=== PATIENT | female | born 1970 | race American Indian/Alaskan Native ===

== ENCOUNTER 2016-11-09 13:24 | Emergency (ER) | payer OTHER ==
[2016-11-09 13:24] VITALS: BMI 27.7
[2016-11-09 13:42] VITALS: BP 144/78; PULSE 80; RESP 20; TEMP 98.3; O2SAT 99
--- NOTE | 2016-11-09 14:28 | ED PDOC ---
Upper Extremity Pain/Injury Time Seen by Provider: 11/09/16 13:34 Chief Complaint (Nursing): Finger,Hand,&Wrist Chief Complaint (Provider): cyst on left hand History Per: Patient History/Exam Limitations: no limitations Onset/Duration Of Symptoms: Days Current Symptoms Are (Timing): Still Present Quality: "Pain" Severity: Moderate Exacerbating Factor(s): Strenuous Use Of Affected Area Additional History Per: Patient Additional Complaint(s): The pt. is a 46yo female, right hand dominant, presents to the ED for evaluation of pain in her left wrist radiating through her left arm. Pt has a ganglion cyst on her left wrist and reports it has been present for a long time period however has recently started causing her pain. Pt. states pain worsens with movement of her wrist. She offers no additional medical complaints. Past Medical History Reviewed: Historical Data, Nursing Documentation, Vital Signs Vital Signs: Last Vital Signs Temp 98.3 F 11/09/16 13:40 Pulse 80 11/09/16 13:40 Resp 20 11/09/16 13:40 BP 144/78 11/09/16 13:40 Pulse Ox 99 11/09/16 13:40 - Medical History PMH: HTN - Surgical History Surgical History: No Surg Hx - Family History Family History: States: Unknown Family Hx - Home Medications Home Medications: Ambulatory Orders Medication Instructions Recorded Cetirizine Hydrochloride [Zyrtec] 10 mg PO DAILY #15 tab 03/05/14 Fluticasone Nasal [Flonase] 2 spr NS DAILY #1 spr 03/05/14 Hydrochlorothiazide [HCTZ] 25 mg PO DAILY #15 03/05/14 diaZEpam [Valium] 5 mg PO Q6 #10 tab 03/05/14 Naproxen 375 mg PO Q8 PRN #21 tab 06/15/14 diaZEpam [Valium] 5 mg PO Q6 PRN #8 tab 06/15/14 Cephalexin [cephalexin] 500 mg PO BID #14 cap 11/09/16 Ibuprofen [Motrin] 600 mg PO Q6 #20 tab 11/09/16 - Allergies Allergies/Adverse Reactions: Allergies Allergy/AdvReac Type Severity Reaction Status Date / Time No Known Allergies Allergy Verified 11/09/16 13:39 Review of Systems ROS Statement: Except As Marked, All Systems Reviewed And Found Negative Musculoskeletal: Positive for: Arm Pain (left arm and wrist pain) Physical Exam - Reviewed Nursing Documentation Reviewed: Yes Vital Signs Reviewed: Yes - Physical Exam Appears: Positive for: Well, Non-toxic, No Acute Distress Pulses-Radial (L): 2+ Extremity: Positive for: Normal ROM, Other (ganglion cyst present on left anterior wrist. mild swelling and erythema noted) - ECG O2 Sat by Pulse Oximetry: 99 (RA) Pulse Ox Interpretation: Normal Medical Decision Making Medical Decision Making: Time: 1348 Impression: Possible infection of ganglion cyst Plan: * Keflex 500 mg PO * See procedure note for aspiration of cyst * Reassess * * Needle aspiration first preformed, 1 cc purulent martial drained. * Site prepped and anesthetized next and 11 blade used to incise and drain site. no further production of purulent material * * Site cleaned and dressed. * * Pt referred to hand. importance of follow up stressed; Scribe Attestation: All records were documented by Dena Goodman, acting as a Scribe for ARISTEO Guillory. Provider Scribe Attestation: All medical record entries made by the Scribe were at my direction and personally dictated by me. I have reviewed the chart and agree that the record accurately reflects my personal performance of the history, physical exam, medical decision making, and the department course for this patient. I have also personally directed, reviewed, and agree with the discharge instructions and disposition. Procedures - Incision and Drainage Site: left wrist Blade Size: 11 I & D Procedure: betadine prep Disposition - Clinical Impression Clinical Impression: Ganglion cyst, Cellulitis - Patient ED Disposition Is Patient to be Admitted: No - Disposition Referrals: Andrew Méndez MD [Staff Provider] - Disposition: Routine/Home Disposition Time: 15:34 Condition: STABLE Prescriptions: Cephalexin [cephalexin] 500 mg PO BID #14 cap Ibuprofen [Motrin] 600 mg PO Q6 #20 tab Instructions: Ganglion Cysts (ED) Forms: [facility]charge (Bulgarian) - POA Present On Arrival: None
[2016-11-09] MEDS ORDERED: Lidocaine 1% Inj (20ml) ONE (15:06)
== END 2016-11-09 15:42 | disposition home or self-care (01) ==
LOC: H.ER 13:24
DX: M67.432 Ganglion, left wrist (principal); L03.119 Cellulitis of unspecified part of limb

== ENCOUNTER 2017-10-27 13:06 | Emergency (ER) | payer OTHER ==
[2017-10-27 13:07] VITALS: BMI 27.7
[2017-10-27 13:15] VITALS: PULSE 85; RESP 16; TEMP 98; O2SAT 98
[2017-10-27 13:16] VITALS: BP 138/77
--- NOTE | 2017-10-27 14:29 | ED PDOC ---
HPI: Abdomen Time Seen by Provider: 10/27/17 13:40 Chief Complaint (Nursing): Abdominal Pain Chief Complaint (Provider): Abdominal Pain History Per: Patient History/Exam Limitations: no limitations Onset/Duration Of Symptoms: Days (x2), Intermittent Episodes Current Symptoms Are (Timing): Still Present Location Of Pain/Discomfort: Other (lower abdomina pain ) Quality Of Discomfort: "Pain" Associated Symptoms: denies: Fever, Vomiting, Diarrhea, Urinary Symptoms Additional Complaint(s): 47 year old female presents to the ED complaining of on and off, lower abdominal pain, onset 2 days ago. Patient denies vomiting, diarrhea, fever, urinary symptoms, constipation, rectal bleeding. Patient presents with no other complaints. PMD: Dr. Kortney Gar Past Medical History Reviewed: Historical Data, Nursing Documentation, Vital Signs Vital Signs: Last Vital Signs Temp 98 F 10/27/17 13:13 Pulse 85 10/27/17 13:13 Resp 16 10/27/17 13:13 BP 138/77 10/27/17 13:13 Pulse Ox 98 10/27/17 17:50 - Medical History PMH: HTN - Surgical History Surgical History: - Family History Family History: States: Unknown Family Hx - Home Medications Home Medications: Ambulatory Orders Medication Instructions Recorded Cetirizine Hydrochloride [Zyrtec] 10 mg PO DAILY #15 tab 03/05/14 Fluticasone Nasal [Flonase] 2 spr NS DAILY #1 spr 03/05/14 Hydrochlorothiazide [HCTZ] 25 mg PO DAILY #15 03/05/14 diaZEpam [Valium] 5 mg PO Q6 #10 tab 03/05/14 Naproxen 375 mg PO Q8 PRN #21 tab 06/15/14 diaZEpam [Valium] 5 mg PO Q6 PRN #8 tab 06/15/14 Cephalexin [cephalexin] 500 mg PO BID #14 cap 11/09/16 Ibuprofen [Motrin] 600 mg PO Q6 #20 tab 11/09/16 Docusate Sodium [Colace] 100 mg PO BID #60 capsule 10/27/17 Ferrous Sulfate [Feosol] 325 mg PO BID #60 tab 10/27/17 Nitrofurantoin Macrocrystals 100 mg PO BID #14 tab 10/27/17 [Macrobid] - Allergies Allergies/Adverse Reactions: Allergies Allergy/AdvReac Type Severity Reaction Status Date / Time No Known Allergies Allergy Verified 11/09/16 13:39 Review of Systems ROS Statement: Except As Marked, All Systems Reviewed And Found Negative Constitutional: Negative for: Fever Gastrointestinal: Positive for: Abdominal Pain (lower abdominal pain). Negative for: Vomiting, Diarrhea, Constipation, Rectal Pain Physical Exam - Reviewed Nursing Documentation Reviewed: Yes Vital Signs Reviewed: Yes - Physical Exam Appears: Positive for: Non-toxic, No Acute Distress Head Exam: Positive for: ATRAUMATIC, NORMOCEPHALIC Skin: Positive for: Normal Color, Warm, Dry Eye Exam: Positive for: EOMI, Normal appearance, PERRL Neck: Positive for: Normal, Painless ROM, Supple Cardiovascular/Chest: Positive for: Regular Rate, Rhythm. Negative for: Murmur Respiratory: Positive for: Normal Breath Sounds. Negative for: Respiratory Distress Gastrointestinal/Abdominal: Positive for: Normal Exam, Soft, Tenderness ( suprapubic tenderness ) Back: Positive for: Normal Inspection. Negative for: L CVA Tenderness, R CVA Tenderness, Vertebral Tenderness Extremity: Positive for: Normal ROM. Negative for: Pedal Edema, Deformity Neurologic/Psych: Positive for: Alert, Oriented (x3). Negative for: Motor/ Sensory Deficits - Laboratory Results Result Diagrams: 10/27/17 14:30 10/27/17 14:30 - ECG O2 Sat by Pulse Oximetry: 98 (RA) Pulse Ox Interpretation: Normal - Progress Re-evaluation Time: 17:46 Condition: Re-examined, Improved Medical Decision Making Medical Decision Making: Time: 1421 Impression: Abdominal Pain Differentials include but not limited to UTI and other conditions such as acute gastroenteritis, related complications, and Colitis Plan: -- CMP -- Lipase -- ED Urine -- ED Urine Dipstick -- CBC (with differentials) Time: 1500 Plan: -- Urine Culture Time: 1554 Plan: -- Abdomen & Pelvis CT w/o Contrast Time: 1739 -- CT Abdomen & Pelvis Results: FINDINGS: LOWER THORAX: Unremarkable. LIVER: Unremarkable. No gross lesion or ductal dilatation. GALLBLADDER AND BILE DUCTS: Unremarkable. PANCREAS: Unremarkable. No gross lesion or ductal dilatation. SPLEEN: Unremarkable. ADRENALS: Unremarkable. No mass. KIDNEYS AND URETERS: Unremarkable. No hydronephrosis. No solid mass. VASCULATURE: Unremarkable. No aortic aneurysm. BOWEL: Unremarkable. No obstruction. No gross mural thickening. APPENDIX: Unremarkable. Normal appendix. PERITONEUM: Unremarkable. No free fluid. No free air. LYMPH NODES: Unremarkable. No enlarged lymph nodes. BLADDER: Unremarkable. REPRODUCTIVE: Enlarged uterus measuring 8.6 x 10 x 12.3 cm. Questionable left adnexal cyst 1.9 cm. BONES: No acute fracture. OTHER FINDINGS: None. IMPRESSION: No acute findings related to/accounting for the clinical presentation. Uterine enlargement, a questionable left adnexal cysts. Scribe Attestation: Documented by Laura Dowell, acting as a scribe for Dr. Evan Ng. Provider Scribe Attestation: All medical record entries made by the Scribe were at my direction and personally dictated by me. I have reviewed the chart and agree that the record accurately reflects my personal performance of the history, physical exam, medical decision making, and the department course for this patient. I have also personally directed, reviewed, and agree with the discharge instructions and disposition. Disposition - Clinical Impression Clinical Impression: UTI (urinary tract infection), Abdominal pain - Patient ED Disposition Is Patient to be Admitted: No Doctor Will See Patient In The: Office Counseled Patient/Family Regarding: Studies Performed, Diagnosis, Need For Followup - Disposition Referrals: [facility] [Outside] Disposition: Routine/Home Disposition Time: 17:47 Condition: GOOD Additional Instructions: Take motrin for pain. Take your medications as instructed. Follow up with your PCP in 2-3 days. Prescriptions: Docusate Sodium [Colace] 100 mg PO BID #60 capsule Ferrous Sulfate [Feosol] 325 mg PO BID #60 tab Nitrofurantoin Macrocrystals [Macrobid] 100 mg PO BID #14 tab Instructions: Urinary Tract Infections in Adults, Anemia Caused by Low Iron
[2017-10-27 14:51] LABS: BASO # 0.1 K/uL (0.0-0.2); BASO % 1.2 % (0.0-2.0); EOS % 0.8 % (0.0-4.0); HEMOGLOBIN 6.9 g/dL (12.0-16.0); LYMPH # 3.3 K/uL (1.0-4.3); LYMPH % 51.2 % (20.0-40.0); MEAN CORPUSCULAR HGB CONC 29.3 g/dL (33.0-37.0); MEAN PLATELET VOLUME 8.7 fl (7.2-11.7); MONO # 0.4 K/uL (0.0-0.8); MONO % 6.9 % (0.0-10.0); NEUT # 2.5 K/uL (1.8-7.0); NEUT % 39.9 % (50.0-75.0); NRBC % 0.2 % (0.0-0.0); RBC 4.06 Mil/uL (3.80-5.20); RED CELL DISTRIBUTION WIDTH 20.1 % (11.5-14.5); WHITE BLOOD COUNT 6.4 K/uL (4.8-10.8)
[2017-10-27 14:53] LABS: ALB/GLOB RATIO 1.1 (1.0-2.1); ALBUMIN 4.3 g/dL (3.5-5.0); ALT/SGPT 24 U/L (9-52); AST/SGOT 30 U/L (14-36); BLOOD UREA NITROGEN 12 mg/dl (7-17); CALCIUM 8.9 mg/dL (8.4-10.2); GFR AFRICAN-AMERICAN > 60; GFR NON-AFRICAN AMERICAN > 60; LIPASE 129 U/L (23-300)
[2017-10-27] MEDS ORDERED: Iohexol 300 100 ML IJ ONE (16:06)
[2017-10-27] MEDS ORDERED: Sodium Chloride 0.9% 0 ML ONE (16:07)
--- NOTE | 2017-10-27 17:41 | CT ---
PROCEDURE: CT Abdomen and Pelvis without intravenous contrast HISTORY: Lower abdominal pain. Negative test (concurrent with this examination). COMPARISON: None. TECHNIQUE: Unenhanced study. Neither oral nor intravenous contrast administered. Patient declined IV contrast. Total exam DLP = 480.73 mGy-cm. This CT exam was performed using one or more of the following dose reduction techniques: Automated exposure control, adjustment of the mA and/or kV according to patient size, and/or use of iterative reconstruction technique. FINDINGS: LOWER THORAX: Unremarkable. LIVER: Unremarkable. No gross lesion or ductal dilatation. GALLBLADDER AND BILE DUCTS: Unremarkable. PANCREAS: Unremarkable. No gross lesion or ductal dilatation. SPLEEN: Unremarkable. ADRENALS: Unremarkable. No mass. KIDNEYS AND URETERS: Unremarkable. No hydronephrosis. No solid mass. VASCULATURE: Unremarkable. No aortic aneurysm. BOWEL: Unremarkable. No obstruction. No gross mural thickening. APPENDIX: Unremarkable. Normal appendix. PERITONEUM: Unremarkable. No free fluid. No free air. LYMPH NODES: Unremarkable. No enlarged lymph nodes. BLADDER: Unremarkable. REPRODUCTIVE: Enlarged uterus measuring 8.6 x 10 x 12.3 cm. Questionable left adnexal cyst 1.9 cm. BONES: No acute fracture. OTHER FINDINGS: None. IMPRESSION: No acute findings related to/accounting for the clinical presentation. Uterine enlargement, a questionable left adnexal cysts.
== END 2017-10-27 18:05 | disposition home or self-care (01) ==
LOC: H.ER 13:06
DX: N39.0 Urinary tract infection, site not specified (principal); I10 Essential (primary) hypertension; N85.2 Hypertrophy of uterus; D64.9 Anemia, unspecified

== ENCOUNTER 2018-01-18 22:51 | Emergency (ER) | payer OTHER ==
[2018-01-18 22:52] VITALS: BMI 27.7
[2018-01-18 23:00] VITALS: RESP 18
[2018-01-18] MEDS ORDERED: Sodium Chloride 0.9% 1,000 ML IV STA (23:37)
[2018-01-19 00:26] LABS: BASO # 0.1 K/uL (0.0-0.2); EOS # 0.1 K/uL (0.0-0.7); EOS % 1.2 % (0.0-4.0); HEMOGLOBIN 10.9 g/dL (12.0-16.0); LYMPH # 2.7 K/uL (1.0-4.3); LYMPH % 28.4 % (20.0-40.0); MEAN CELL VOLUME 82.5 fl (81.0-99.0); MEAN CORPUSCULAR HEMOGLOBIN 27.2 pg (27.0-31.0); MEAN PLATELET VOLUME 8.5 fl (7.2-11.7); MONO # 1.1 K/uL (0.0-0.8); MONO % 11.4 % (0.0-10.0); NEUT # 5.4 K/uL (1.8-7.0); RED CELL DISTRIBUTION WIDTH 21.1 % (11.5-14.5); WHITE BLOOD COUNT 9.3 K/uL (4.8-10.8)
[2018-01-19 00:29] LABS: ALB/GLOB RATIO 1.2 (1.0-2.1); ALBUMIN 4.3 g/dL (3.5-5.0); ALT/SGPT 25 U/L (9-52); AST/SGOT 34 U/L (14-36); BLOOD UREA NITROGEN 12 mg/dl (7-17); GFR AFRICAN-AMERICAN > 60; GFR NON-AFRICAN AMERICAN > 60
[2018-01-19 00:33] LABS: PARTIAL THROMBOPLASTIN TIME 26.8 Seconds (25.6-37.1); PROTHROMBIN TIME 11.5 Seconds (9.8-13.1)
[2018-01-19 00:34] LABS: SQUAMOUS EPITHIAL < 1 /hpf (0-5); URINE BACTERIA RARE (<OCC); URINE BILIRUBIN NEGATIVE (NEGATIVE); URINE BLOOD SMALL (NEGATIVE); URINE CLARITY CLEAR (Clear); URINE COLOR STRAW (YELLOW); URINE GLUCOSE (UA) NEG (Normal); URINE LEUKOCYTE ESTERASE NEG Leu/uL (Negative); URINE PROTEIN NEGATIVE (NEGATIVE); URINE UROBILINOGEN 0.2-1.0 mg/dL (0.2-1.0)
[2018-01-19] MEDS ORDERED: Sodium Chloride 0.9% 1,000 ML IV STA (02:17)
--- NOTE | 2018-01-19 02:27 | ED PDOC ---
HPI: Abdomen Time Seen by Provider: 01/18/18 23:05 Chief Complaint (Nursing): Abdominal Pain Chief Complaint (Provider): Abdominal Pain History Per: Patient History/Exam Limitations: no limitations Onset/Duration Of Symptoms: Days (x1) Current Symptoms Are (Timing): Still Present Additional Complaint(s): 47 y/o female with a PMHx of fibroids presenting for evaluation of abdominal pain x1 day. Patient had an endometrial biopsy earlier today performed by Dr. Seo. Patient states she has been taking Ibuprofen at home as directed, but is still experiencing pain. Patient also reports feeling lightheaded. She states she had some vaginal bleeding after the biopsy, but has none at present. She denies any associated nausea or vomiting. PCP: Malou Seo Past Medical History Reviewed: Historical Data Vital Signs: Last Vital Signs Temp 98.4 F 01/19/18 02:15 Pulse 76 01/19/18 02:15 Resp 18 01/19/18 02:15 BP 156/94 H 01/19/18 02:15 Pulse Ox 99 01/19/18 02:32 - Medical History PMH: Anemia, HTN Other PMH: Fibroids - Surgical History Surgical History: - Family History Family History: States: Unknown Family Hx - Social History Current smoker - smoking cessation education provided: Yes (half pack per day) Alcohol: None Drugs: Denies - Home Medications Home Medications: Ambulatory Orders Medication Instructions Recorded Cetirizine Hydrochloride [Zyrtec] 10 mg PO DAILY #15 tab 03/05/14 Fluticasone Nasal [Flonase] 2 spr NS DAILY #1 spr 03/05/14 Hydrochlorothiazide [HCTZ] 25 mg PO DAILY #15 03/05/14 diaZEpam [Valium] 5 mg PO Q6 #10 tab 03/05/14 Naproxen 375 mg PO Q8 PRN #21 tab 06/15/14 diaZEpam [Valium] 5 mg PO Q6 PRN #8 tab 06/15/14 Cephalexin [cephalexin] 500 mg PO BID #14 cap 11/09/16 Ibuprofen [Motrin] 600 mg PO Q6 #20 tab 11/09/16 Docusate Sodium [Colace] 100 mg PO BID #60 capsule 10/27/17 Ferrous Sulfate [Feosol] 325 mg PO BID #60 tab 10/27/17 Nitrofurantoin Macrocrystals 100 mg PO BID #14 tab 10/27/17 [Macrobid] - Allergies Allergies/Adverse Reactions: Allergies Allergy/AdvReac Type Severity Reaction Status Date / Time No Known Allergies Allergy Verified 01/18/18 22:57 Review of Systems ROS Statement: Except As Marked, All Systems Reviewed And Found Negative Cardiovascular: Positive for: Light Headedness Gastrointestinal: Positive for: Abdominal Pain. Negative for: Nausea, Vomiting Genitourinary Female: Positive for: Vaginal Bleeding (resolved) Physical Exam - Reviewed Nursing Documentation Reviewed: Yes Vital Signs Reviewed: Yes - Physical Exam Appears: Positive for: Non-toxic, No Acute Distress Head Exam: Positive for: ATRAUMATIC, NORMAL INSPECTION, NORMOCEPHALIC Skin: Positive for: Normal Color, Warm, Dry. Negative for: Rash Eye Exam: Positive for: EOMI, Normal appearance, PERRL ENT: Positive for: Normal ENT Inspection Neck: Positive for: Normal, Painless ROM, Supple Cardiovascular/Chest: Positive for: Regular Rate, Rhythm. Negative for: Murmur Respiratory: Positive for: Normal Breath Sounds. Negative for: Respiratory Distress Gastrointestinal/Abdominal: Positive for: Soft, Tenderness (superpubic tenderness) Back: Positive for: Normal Inspection. Negative for: L CVA Tenderness, R CVA Tenderness, Vertebral Tenderness Extremity: Positive for: Normal ROM. Negative for: Tenderness, Deformity Neurologic/Psych: Positive for: Alert, Oriented. Negative for: Motor/Sensory Deficits - Laboratory Results Result Diagrams: 01/18/18 23:55 01/18/18 23:55 - ECG O2 Sat by Pulse Oximetry: 99 (RA) Pulse Ox Interpretation: Normal Medical Decision Making Medical Decision Makin:33 Impression: 47 y/o female with post endometrial biopsy pain Plan: -CMP -Urine -CBC w/ differential -PTT/PT -Morphine 4mg IVP -1LNS -Toradol 30mg IV -Heplock insertion -Urinalysis -Reevaluation 03:12 Patient reports improvement of symptoms. Labs showed no clinically significant abnormalities. Patient is stable upon discharge. Scribe Attestation: Documented by Mele Roth, acting as a scribe for Trip Agustin MD. Provider Scribe Attestation: All medical record entries made by the Scribe were at my direction and personally dictated by me. I have reviewed the chart and agree that the record accurately reflects my personal performance of the history, physical exam, medical decision making, and the department course for this patient. I have also personally directed, reviewed, and agree with the discharge instructions and disposition. Disposition - Clinical Impression Clinical Impression: Pelvic pain - Patient ED Disposition Is Patient to be Admitted: No Counseled Patient/Family Regarding: Studies Performed, Diagnosis, Need For Followup - Disposition Referrals: Kortney Gar MD [Primary Care Provider] - Disposition: Routine/Home Disposition Time: 03:12 Condition: STABLE Additional Instructions: GAYLE TORIBIO, thank you for letting us take care of you today. Your provider was Trip Agustin MD and you were treated for ABD CRAMPING, HEADACHE. The emergency medical care you received today was directed at your acute symptoms. If you were prescribed any medication, please fill it and take as directed. It may take several days for your symptoms to resolve. Return to the Emergency Department if your symptoms worsen, do not improve, or if you have any other problems. Please contact your doctor or call one of the physicians/clinics you have been referred to that are listed on the Patient Visit Information form that is included in your discharge packet. Bring any paperwork you were given at discharge with you along with any medications you are taking to your follow up visit. Our treatment cannot replace ongoing medical care by a primary care provider outside of the emergency department. Thank you for allowing the [facility] team to be part of your care today. If you had an X-Ray or CT scan: A Radiologist will review the ED reading if any change in treatment is needed we will contact you. If you had a blood, urine, or wound culture: It will take several days for the results, if any change in treatment is needed we will contact you. If you had an STI test: It will take 48 hours for the results. Please call after 1 week if you have not heard back. Instructions: Acute Pelvic Pain (DC) Forms: [facility] (Malaysian)
[2018-01-19 07:06] VITALS: BP 136/87; PULSE 71; TEMP 98.1; O2SAT 98
== END 2018-01-19 07:07 | disposition home or self-care (01) ==
LOC: H.ER 22:51
DX: R10.2 Pelvic and perineal pain (principal); R42 Dizziness and giddiness; D25.9 Leiomyoma of uterus, unspecified; I10 Essential (primary) hypertension
CPT/HCPCS: 80053; 81003; 81025; 85025; 85610; 85730; 96361; 96374; 96375; 99284; J1885; J2270; J7030

== ENCOUNTER 2018-09-22 09:20 | Observation (INO) | payer OTHER ==
[2018-09-22 09:39] VITALS: BMI 25.3
[2018-09-22 10:54] LABS: BASO % 0.8 % (0.0-2.0); EOS # 0.1 K/uL (0.0-0.7); EOS % 1.7 % (0.0-4.0); HEMOGLOBIN 10.6 g/dL (12.0-16.0); LYMPH # 1.1 K/uL (1.0-4.3); LYMPH % 18.7 % (20.0-40.0); MEAN CELL VOLUME 77.2 fl (81.0-99.0); MEAN CORPUSCULAR HEMOGLOBIN 24.5 pg (27.0-31.0); MEAN CORPUSCULAR HGB CONC 31.7 g/dL (33.0-37.0); MEAN PLATELET VOLUME 8.6 fl (7.2-11.7); MONO # 0.6 K/uL (0.0-0.8); MONO % 10.8 % (0.0-10.0); NEUT # 3.9 K/uL (1.8-7.0); NRBC % 0.1 % (0.0-0.0); RBC 4.33 Mil/uL (3.80-5.20); RED CELL DISTRIBUTION WIDTH 21.9 % (11.5-14.5); WHITE BLOOD COUNT 5.8 K/uL (4.8-10.8)
[2018-09-22 11:03] LABS: BLOOD UREA NITROGEN 11 mg/dl (7-17); CALCIUM 9.5 mg/dL (8.4-10.2); GFR NON-AFRICAN AMERICAN > 60; PROTHROMBIN TIME 11.5 Seconds (9.8-13.1)
[2018-09-22 11:06] LABS: PARTIAL THROMBOPLASTIN TIME 29.1 Seconds (25.6-37.1)
[2018-09-22] MEDS ORDERED: Lactated Ringer's 1,000 ML IV ONE ×3 (11:06→17:20)
[2018-09-22] MEDS ORDERED: Ketamine 50 mg/ml Inj (10 ml) ONE (12:30)
[2018-09-22] MEDS ORDERED: Midazolam 2 MG/2 ML VIAL ONE (12:30)
[2018-09-22] MEDS ORDERED: Propofol 10 mg/ml Inj (20 ML) ONE ×3 (12:30→14:30)
[2018-09-22] MEDS ORDERED: Lidocaine Hydrochloride 1% 10 ML ONE (12:44)
[2018-09-22] MEDS ORDERED: Iodixanol 320 MG/ML 100 ML BOTTLE IV ONE ×2 (12:46→13:24)
[2018-09-22 13:09] VITALS: O2SAT 100
[2018-09-22] MEDS ORDERED: Labetalol 5mg/ml (4ml) ONE (14:43)
--- NOTE | 2018-09-22 15:00 | CP.SDSHP ---
Same Day Surgery H & P - History Proposed Procedure: Uterine artery embolization for symptomati uterine fibroids Pre-Op Diagnosis: Uterine fibroids, anemia - Allergies Allergies: Allergies No Known Allergies Allergy (Verified 09/22/18 10:36) - Physical Exam Vital Signs: Vital Signs 09/22/18 09/22/18 10:45 13:07 Temperature 98.2 F 98.5 F Pulse Rate 70 75 Respiratory 18 18 Rate Blood Pressure 130/88 154/92 H O2 Sat by Pulse 99 100 Oximetry Mental Status: Alert & Oriented x3 Neuro: WNL Heart: WNL Lungs: WNL GI: WNL - Impression Impression: Pt with symptomatic uterine fibrois complicated by anemia and pelvic pain. Pt presents for uterine artery embolization. Informed consent and risk of procedure discussed with the patient. Pt. Evaluated Today:Candidate for Anesthesia & Procedure: Yes (ASA 3 Malampati 3) - Date & Time Date: 09/22/18 Time: 12:30 Short Stay Discharge - Short Stay Discharge Admitting Diagnosis/Reason for Visit: UTERINE FIBROIDS Disposition: HOME/ ROUTINE Referrals: Kortney Gar MD [Primary Care Provider] -
--- NOTE | 2018-09-22 15:01 | PCM.SURG1 ---
Surgeon's Initial Post Op Note - Surgeon's Notes Surgeon: Patrick Apodaca MD Machine Learning Intern: NONE Type of Anesthesia: IV Sedation Pre-Operative Diagnosis: Uterine fibroids Operative Findings: Uterine artery angogram showed tortuous left and a smaller right uterine artery. Post-Operative Diagnosis: Uterine fibroids Operation Performed: Uterine artery embolization with embospheres microspheres 500-700 microns in diameter. Specimen/Specimens Removed: NONE Estimated Blood Loss: EBL {In ML}: 10 Blood Products Given: N/A Drains Used: No Drains Post-Op Condition: Good Date of Surgery/Procedure: 09/22/18 Time of Surgery/Procedure: 14:50
[2018-09-22] MEDS: HYDROmorphone 0.5 mg/0.5 ml ISec IVP PRN ×2 (15:25→15:55)
--- NOTE | 2018-09-22 20:25 | CP.PCM.HP ---
History of Present Illness - History of Present Illness History of Present Illness: 47 y/o F with a PMHx of uterine fibroids, pelvic pain, menorrhagia, iron def anemia, HTN and anxiety is being admitted after having an uterine artery embolization a few hours ago. Pt reports feeling OK, still a little drowsy from anesthesia, able to eat, still has Peter catheter in place. Pelvic and back pain are well controlled with medication, PPAP COORDINATOR pump. Pt denies headache, chills, cough, chest pain, palpitations, SOB, nausea, vomiting or peripheral edema. PCP: Kortnye Ratliff NKDA Meds: Feosol 200mg PO daily, HCTZ 25mg PO daily, Xanax 0.5mf PO BID PRN. -PMHx: uterine fibroids, pelvic pain, menorrhagia, iron def anemia, HTN and anxiety -PSHx: -FHx: father with DM2, mother with HTN, thyroid disorder and CKD. -SHx: Pt smoked ~5 cigarettes a day, occasional alcohol, no rec drugs. Present on Admission - Present on Admission Any Indicators Present on Admission: No Review of Systems - Constitutional Constitutional: absent: Anorexia, Chills, Fever - EENT Eyes: absent: Blurred Vision Nose/Mouth/Throat: absent: Nasal Congestion, Tongue Swelling, Facial Pain, Neck Pain, Neck Mass - Cardiovascular Cardiovascular: absent: Chest Pain, Claudication, Dyspnea, Edema - Respiratory Respiratory: absent: Cough, Dyspnea, Hemoptysis - Gastrointestinal Gastrointestinal: absent: Abdominal Pain, Nausea, Vomiting - Musculoskeletal Musculoskeletal: absent: Abnormal Gait, Back Pain, Myalgias, Stiffness, Tingling Past Patient History - Tetanus Immunizations Tetanus Immunization: Unknown - Past Medical History & Family History Past Medical History?: Yes - Past Social History Smoking Status: Light Smoker < 10 Cigarettes Daily Chewing Tobacco Use: No - CARDIAC Hx Hypertension: Yes - RENAL Hx Chronic Kidney Disease: No - ENDOCRINE/METABOLIC Hx Endocrine Disorders: No Hx Diabetes Mellitus Type 1: No Hx Diabetes Mellitus Type 2: No Hx Hyperthyroidism: No Hx Hypothyroidism: No - HEMATOLOGICAL/ONCOLOGICAL Hx Blood Disorders: Yes Hx Anemia: Yes Hx Blood Transfusions: No - GENITOURINARY/GYNECOLOGICAL Hx Urinary Tract Infection: Yes - PSYCHIATRIC Hx Anxiety: Yes Hx Substance Use: No - SURGICAL HISTORY Hx Surgeries: Yes Hx Section: Yes (x1) Other/Comment: Hx Endometris biopsy 01/18/18 - ANESTHESIA Hx Anesthesia: Yes Hx Anesthesia Reactions: No Hx Malignant Hyperthermia: No Has any member of the family had a problem w/ anesthesia?: No Meds Allergies/Adverse Reactions: Allergies Allergy/AdvReac Type Severity Reaction Status Date / Time No Known Allergies Allergy Verified 09/22/18 10:36 Physical Exam - Constitutional Appears: No Acute Distress - Head Exam Head Exam: ATRAUMATIC, NORMAL INSPECTION - Eye Exam Eye Exam: EOMI, PERRL - ENT Exam ENT Exam: Mucous Membranes Moist - Neck Exam Neck exam: Positive for: Full Rom - Respiratory Exam Respiratory Exam: Clear to Auscultation Bilateral, NORMAL BREATHING PATTERN - Cardiovascular Exam Cardiovascular Exam: REGULAR RHYTHM, +S1, +S2 - GI/Abdominal Exam GI & Abdominal Exam: Normal Bowel Sounds, Soft, Tenderness (lower quadrants) - Extremities Exam Extremities exam: Positive for: full ROM, normal inspection. Negative for: calf tenderness, pedal edema - Neurological Exam Neurological exam: Alert, Oriented x3 - Psychiatric Exam Psychiatric exam: Normal Affect, Normal Mood Results - Vital Signs Recent Vital Signs: Last Vital Signs Temp 97.4 F L 09/22/18 19:47 Pulse 74 09/22/18 19:47 Resp 20 09/22/18 19:47 BP 156/92 H 09/22/18 19:47 Pulse Ox 100 09/22/18 19:47 - Labs Result Diagrams: 09/22/18 10:38 09/22/18 10:38 Labs: Laboratory Results - last 24 hr 09/22/18 09/22/18 09/22/18 10:38 10:38 10:38 WBC 5.8 RBC 4.33 Hgb 10.6 L Hct 33.4 L MCV 77.2 L MCH 24.5 L MCHC 31.7 L RDW 21.9 H Plt Count 243 MPV 8.6 Neut % (Auto) 68.0 Lymph % (Auto) 18.7 L Bradley % (Auto) 10.8 H Eos % (Auto) 1.7 Baso % (Auto) 0.8 Neut # (Auto) 3.9 Lymph # (Auto) 1.1 [place] # (Auto) 0.6 Eos # (Auto) 0.1 Baso # (Auto) 0.0 PT 11.5 INR 1.0 APTT 29.1 Sodium 139 Potassium 4.8 Chloride 101 Carbon Dioxide 26 Anion Gap 17 BUN 11 Creatinine 0.5 L Est GFR ( Amer) > 60 Est GFR (Non-Af Amer) > 60 Random Glucose 93 Calcium 9.5 Assessment & Plan - Assessment and Plan (Free Text) Assessment: 47 y/o F with a PMHx of uterine fibroids, pelvic pain, menorrhagia, iron def anemia, HTN and anxiety is admitted for evaluation and management of S/P uterine artery embolization. PLAN: >S/P uterine artery embolization. --As treatment for menorrhagia and uterine fibroids. --POD # 0. --Afebrile and stable. --On pain management: PPAP COORDINATOR hydromorphone pump. --D/C Peter --Monitor recovery --F/U morning labs >Iron deficiency anemia --Chronic, due to menorrhagia --Home meds resumed: Feosol PO daily. --F/U morning labs >HTN --Chronic --Home meds resumed >DVT Prophylaxis --SCD's Case discussed with Dr Cong St PGY-2. - Date & Time Date: 09/22/18 Time: 20:30
[2018-09-22] MEDS ORDERED: Oxycodone/Acetaminophen 5/325 mg Tab PO PRN (20:56)
[2018-09-23] MEDS: Lactated Ringer's 1,000 ML IV SCH ×2 (01:00→09:10)
[2018-09-23 06:27] LABS: HEMOGLOBIN 9.6 g/dL (12.0-16.0); MEAN CELL VOLUME 78.5 fl (81.0-99.0); MEAN CORPUSCULAR HEMOGLOBIN 24.9 pg (27.0-31.0); MEAN CORPUSCULAR HGB CONC 31.7 g/dL (33.0-37.0); RBC 3.85 Mil/uL (3.80-5.20); RED CELL DISTRIBUTION WIDTH 22.1 % (11.5-14.5)
[2018-09-23 06:30] LABS: WHITE BLOOD COUNT 9.2 K/uL (4.8-10.8)
[2018-09-23 07:20] LABS: BLOOD UREA NITROGEN 6 mg/dl (7-17); CALCIUM 8.9 mg/dL (8.4-10.2); GFR NON-AFRICAN AMERICAN > 60
--- NOTE | 2018-09-23 12:23 | PCM.IRP ---
History of Present Illness - History of Present Illness History of Present Illness: POD#1 s/p uterine artery embolization. Ms. Ross seen today. Overnight events noted. Pt has no complaints. Her pain is controlled with toradol. 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 Folley removed at 6 am. Pt has not voided. Apetite is not great. She would like to go home. Groin looks good. No hematoma. No discharge. PLAN: Pt will be discharged home with pain medication, abx ( in chart). She will follow up with IR in 1 week for groin site check and 1 month. Objective - Vital Signs/Intake and Output Vital Signs (last 24 hours): Vital Signs - 24 hr 09/22/18 09/22/18 09/22/18 13:07 15:10 15:25 Temperature 98.5 F 96.6 F L 97.0 F L Pulse Rate 75 84 78 Respiratory 18 19 19 Rate Blood Pressure 154/92 H 176/113 H 166/105 H O2 Sat by Pulse 100 100 100 Oximetry 09/22/18 09/22/18 09/22/18 15:40 15:55 16:10 Temperature 98.1 F 98.7 F Pulse Rate 82 81 82 Respiratory 19 19 19 Rate Blood Pressure 165/94 H 169/92 H 165/96 H O2 Sat by Pulse 100 100 100 Oximetry 09/22/18 09/22/18 09/22/18 16:25 16:40 16:55 Temperature 98.3 F Pulse Rate 84 81 80 Respiratory 19 22 17 Rate Blood Pressure 167/93 H 165/96 H 166/95 H O2 Sat by Pulse 100 100 100 Oximetry 09/22/18 09/22/18 09/22/18 17:10 17:25 17:40 Temperature 98.7 F 98.5 F 98.7 F Pulse Rate 85 86 82 Respiratory 19 20 20 Rate Blood Pressure 155/93 H 149/94 H 162/92 H O2 Sat by Pulse 100 100 100 Oximetry 09/22/18 09/22/18 09/22/18 18:47 19:47 21:00 Temperature 98.5 F 97.4 F L 98.0 F Pulse Rate 86 74 74 Respiratory 20 20 18 Rate Blood Pressure 161/87 H 156/92 H 170/89 H O2 Sat by Pulse 100 100 100 Oximetry 09/22/18 09/22/18 09/23/18 21:39 22:30 01:00 Temperature 97.9 F 98.3 F Pulse Rate 81 77 73 Respiratory 18 18 Rate Blood Pressure 170/89 H 145/77 126/73 O2 Sat by Pulse 100 100 Oximetry 09/23/18 09/23/18 05:00 07:51 Temperature 98.0 F 98.3 F Pulse Rate 64 70 Respiratory 17 19 Rate Blood Pressure 156/81 H 144/79 O2 Sat by Pulse 100 100 Oximetry Intake and Output (last 12 hours): Intake & Output 09/22/18 09/23/18 09/23/18 18:59 06:59 18:59 Intake Total 200 Output Total 1700 Balance -1500 Weight 157 lb Intake: IV 200 Output: Urine 1700 - Medications Medications: Current Medications Acetaminophen (Tylenol 325mg Tab) 650 mg PO Q4 PRN PRN Reason: Pain, moderate (4-7) Last Admin: 09/23/18 06:08 Dose: 650 mg Acetaminophen (Tylenol 325mg Tab) 325 mg PO Q4 PRN PRN Reason: Pain, Mild (1-3) Alprazolam (Xanax) 0.5 mg PO Q12 PRN PRN Reason: Anxiety Ferrous Sulfate (Feosol) 325 mg PO DAILY [facility] Last Admin: 09/23/18 09:08 Dose: 325 mg Hydrochlorothiazide (Microzide) 12.5 mg PO DAILY [facility] Last Admin: 09/23/18 09:09 Dose: 12.5 mg Hydromorphone HCl (Dilaudid 0.2 Mg/Ml Director Of Women'S Services) 0 mg IV PRN PRN; Protocol PRN Reason: Pain, moderate (4-7) Last Admin: 09/22/18 16:25 Dose: 0.2 mg Lactated Ringer's (Lactated Ringer's) 1,000 mls @ 125 mls/hr IV .Q8H [facility] Last Admin: 09/23/18 09:10 Dose: 125 mls/hr Ketorolac Tromethamine (Toradol) 30 mg IVP Q6 PRN PRN Reason: Pain, moderate (4-7) Last Admin: 09/23/18 09:54 Dose: 30 mg - Labs Labs (last 24 hours): Laboratory Results - last 24 hr 09/23/18 09/23/18 05:15 05:15 WBC 9.2 D RBC 3.85 Hgb 9.6 L Hct 30.2 L MCV 78.5 L MCH 24.9 L MCHC 31.7 L RDW 22.1 H Plt Count 190 Sodium 138 Potassium 3.3 L Chloride 102 Carbon Dioxide 28 Anion Gap 11 BUN 6 L Creatinine 0.6 L Est GFR ( Amer) > 60 Est GFR (Non-Af Amer) > 60 Random Glucose 88 Calcium 8.9
--- NOTE | 2018-09-23 12:33 | VASCULAR ---
PROCEDURE: Date of procedure: 09/22/2018 Procedure: 1. Uterine artery embolization MEDICATIONS: Patient sedated by anesthesiologist with MAC anesthesia, 7 cubic centimeters 2 percent lidocaine. Toradol 30 mg IV. HISTORY: Uterine leiomyomas, dysfunctional bleeding, anemia TECHNIQUE: Following informed consent the procedure time-out, patient placed supine on the interventional table. Her right groin was prepped and draped in the usual sterile fashion. Following informed consent, the right common femoral artery was accessed with micropuncture technique and a guidewire was advanced under fluoroscopic guidance into the abdominal aorta. Through a 4 Cuban vascular sheath, a 4 Cuban cobra glide catheter was advanced over the wire and used to select the left internal iliac artery. A pelvic angiogram was performed in the SUDANESE projection. The pelvic angiogram showed a very tortuous and dilated left uterine artery arising from the anterior division of the left internal iliac artery. The left uterine artery was then catheterized with a 4 Cuban cobra glide catheter. A selective left uterine artery angiogram was performed. Left uterine artery angiogram showed a hypovascular fibroid uterus. With a Cobra catheter position within the left urine arteries, the artery was embolized with a embospheres micro spheres measuring 500-700 microns until near stasis of blood was achieved both before and after 5-minutes waiting period. Post embolization angiogram showed the delayed filling of the left uterine artery. The cobra glide catheter was then positioned within the ipsilateral right internal iliac artery and a pelvic angiogram was performed in the ROBERTSON projection. Pelvic angiogram showed a small and tortuous right uterine artery arising from the anterior division of the right internal iliac artery. After multiple attempts, the right uterine artery could not be catheterized. Catheter and fascial removed and hemostasis achieved with a 6 Cuban Angio-Seal followed by manual compression. IMPRESSION: 1. Successful uterine artery embolization 2. The patient be admitted for observation and pain control. 3. The patient will be discharged with intervention Radiology followup for assessment of volume reduction and fibroid infarction following embolization.
--- NOTE | 2018-09-23 13:35 | CP.PCM.DIS ---
Provider - Provider Date of Admission: 09/22/18 18:07 Attending physician: Kortney Johnson MD Primary care physician: Kortney Johnson MD Consults: 09/23/18 07:48 Social Work Referral Routine Comment: protocol Physician Instructions: Reason For Exam: discharge planning Time Spent in preparation of Discharge (in minutes): 25 Diagnosis - Discharge Diagnosis (1) Status post embolization of uterine artery Status: Resolved Hospital Course - Lab Results Lab Results: Most Recent Lab Values WBC 9.2 K/uL (4.8-10.8) D 09/23/18 05:15 RBC 3.85 Mil/uL (3.80-5.20) 09/23/18 05:15 Hgb 9.6 g/dL (12.0-16.0) L 09/23/18 05:15 Hct 30.2 % (34.0-47.0) L 09/23/18 05:15 MCV 78.5 fl (81.0-99.0) L 09/23/18 05:15 MCH 24.9 pg (27.0-31.0) L 09/23/18 05:15 MCHC 31.7 g/dL (33.0-37.0) L 09/23/18 05:15 RDW 22.1 % (11.5-14.5) H 09/23/18 05:15 Plt Count 190 K/uL (130-400) 09/23/18 05:15 MPV 8.6 fl (7.2-11.7) 09/22/18 10:38 Neut % (Auto) 68.0 % (50.0-75.0) 09/22/18 10:38 Lymph % (Auto) 18.7 % (20.0-40.0) L 09/22/18 10:38 [place] % (Auto) 10.8 % (0.0-10.0) H 09/22/18 10:38 Eos % (Auto) 1.7 % (0.0-4.0) 09/22/18 10:38 Baso % (Auto) 0.8 % (0.0-2.0) 09/22/18 10:38 Neut # (Auto) 3.9 K/uL (1.8-7.0) 09/22/18 10:38 Lymph # (Auto) 1.1 K/uL (1.0-4.3) 09/22/18 10:38 [place] # (Auto) 0.6 K/uL (0.0-0.8) 09/22/18 10:38 Eos # (Auto) 0.1 K/uL (0.0-0.7) 09/22/18 10:38 Baso # (Auto) 0.0 K/uL (0.0-0.2) 09/22/18 10:38 PT 11.5 Seconds (9.8-13.1) 09/22/18 10:38 INR 1.0 09/22/18 10:38 APTT 29.1 Seconds (25.6-37.1) 09/22/18 10:38 Sodium 138 mmol/l (132-148) 09/23/18 05:15 Potassium 3.3 MMOL/L (3.6-5.0) L 09/23/18 05:15 Chloride 102 mmol/L (98-107) 09/23/18 05:15 Carbon Dioxide 28 mmol/L (22-30) 09/23/18 05:15 Anion Gap 11 (10-20) 09/23/18 05:15 BUN 6 mg/dl (7-17) L 09/23/18 05:15 Creatinine 0.6 mg/dl (0.7-1.2) L 09/23/18 05:15 Est GFR ( Amer) > 60 09/23/18 05:15 Est GFR (Non-Af Amer) > 60 09/23/18 05:15 Random Glucose 88 mg/dL (65-105) 09/23/18 05:15 Calcium 8.9 mg/dL (8.4-10.2) 09/23/18 05:15 - Hospital Course Hospital Course: 47 yo female with PMHx of Uterine fibroids, pelvic pain, menorrhagia, iron deficeincy anemia, HTN, and anxiety is admitted s/p uterine artery embolization. Surgery was done on 09/22/[address] Apodaca under general anesthesia. Patient recovered from surgery well, no complication. Patient Peter was DC, Patient was able to pass urine, had good appetite, and had normal diet. Patient was seen and examined today morning, She denies any fever, chills, chest pain, sob, diarrhea or constipation. She does state have some moderate abdominal pain relieved by Toradol. Patient was able to pas urine, and feed. She is comfortable to be discharged and follow up as outpatient. Patient discharged on Toradol 10mg PO Q6 prn pain 20 tab. Patient will follow up with Dr Mederos 2-3 days Patient will follow up with Dr Apodaca in 1 week and 1 mo for wound check and follow up Patient will follow up with Dr. Handy in 3 weeks Patient chart reviewed, case discussed with Dr Mederos and Dr Apodaca, plan were made, discussed with patient. All questions were answered. Patient is stable to be discharged home ER precaution given Discharge Exam - Head Exam Head Exam: ATRAUMATIC, NORMAL INSPECTION - Eye Exam Eye Exam: EOMI, Normal appearance, PERRL Pupil Exam: NORMAL ACCOMODATION, PERRL - Respiratory Exam Respiratory Exam: Clear to PA & Lateral, NORMAL BREATHING PATTERN, UNREMARKABLE - Cardiovascular Exam Cardiovascular Exam: REGULAR RHYTHM, +S1, +S2 - GI/Abdominal Exam GI & Abdominal Exam: Normal Bowel Sounds, Unremarkable Additional comments: tender upon deep palpation mostly on the pelvic area - Extremities Exam Extremities exam: full ROM - Back Exam Back exam: NORMAL INSPECTION - Neurological Exam Neurological exam: Alert, CN II-XII Intact, Oriented x3, Reflexes Normal - Psychiatric Exam Psychiatric exam: Normal Affect, Normal Mood - Skin Skin Exam: Dry, Intact, Normal Color, Warm Discharge Plan - Discharge Medications Prescriptions: Ketorolac Tromethamine [Toradol] 10 mg PO Q6H #20 tab - Follow Up Plan Condition: GOOD Disposition: HOME/ ROUTINE Instructions: Uterine Fibroids (DC), Uterus Artery Embolization (DC) Additional Instructions: follow up with dr johnson 2-3 days and surgeon 5-7 days Referrals: Patrick Apodaca MD [Staff Provider] - Kortney Johnson MD [Primary Care Provider] -
[2018-09-23 16:28] VITALS: BP 144/75; PULSE 67; RESP 20; TEMP 97.8
== END 2018-09-23 14:20 | disposition home or self-care (01) ==
LOC: H.OPSURG 09:20 → H.MEDSURG1 18:07 → INTOOBSV 18:07
PROVIDERS: ADMIT Family Medicine; ATTEND Family Medicine
DX: D25.9 Leiomyoma of uterus, unspecified (principal); N92.0 Excessive and frequent menstruation with regular cycle; D50.9 Iron deficiency anemia, unspecified; I10 Essential (primary) hypertension; F41.9 Anxiety disorder, unspecified; F17.210 Nicotine dependence, cigarettes, uncomplicated; Z98.891 History of uterine scar from previous surgery; Z87.440 Personal history of urinary (tract) infections
CPT/HCPCS: 36415; 37243; 80048; 85025; 85027; 85610; 85730; 94770; 96361; 96374; C1769; C1887; C1894; G0378; J0690; J1170; J1885; J2250; J2405; J2704; J2765; J3010; J7120; Q9967